=== PATIENT | male | born 1970 | race Caucasian/White ===

== ENCOUNTER 2022-04-06 02:30 | Emergency (ER) | payer OTHER, SELFPAY ==
[2022-04-06] MEDS ORDERED: Ondansetron PF 4 MG/2 ML Vial ONE (03:02)
[2022-04-06 03:11] LABS: #Eosinphils 0.1 thou/uL (0.0-0.7); #Lymphocytes 1.6 thou/uL (1.20-3.40); #Monocytes 0.6 thou/uL (0.11-0.59); #Neutrophils 8.3 thou/uL (1.40-6.50); %Basophils 0.4 % (0.0-1.0); %Monocytes 5.2 % (0.0-10.0); %Neutrophils 78.4 % (42.0-75.0); Hemoglobin 12.5 g/dL (14.0-18.0); Mean Corpuscular HGB CONC 30.9 g/dL (32.0-36.0); Mean Corpuscular Hemoglobin 26.8 pg (27.0-31.0); Mean Platelet Volume 6.9 fL (7.4-10.4); Platelet Count 484 thou/uL (130-400); RBC Distribution Width 17.8 % (11.5-14.5); Red Blood Cell (RBC) Count 4.65 mill/uL (4.70-6.10); White Blood Cell (WBC) Count 10.6 thou/uL (4.8-10.8)
[2022-04-06] MEDS ORDERED: Sodium Chloride 0.9% 100 ML ONE (03:21)
[2022-04-06] MEDS ORDERED: Piperacillin/Tazobactam 4.5 GM VIAL ONE (03:21)
[2022-04-06 03:27] LABS: ALT (SGPT) 20 U/L (8-55); AST (SGOT) 12 U/L (5-34); Albumin 3.9 g/dL (3.5-5.0); Alkaline Phosphatase 118 U/L (40-110); Anion Gap 17 mmol/L (10-20); BUN (Urea Nitrogen) 13 mg/dL (8.9-20.6); Bilirubin, Total 0.2 mg/dL (0.2-1.2); Calc. Creatinine Clearance 0 mL/min (70-130); Calcium 9.4 mg/dL (7.8-10.44); Carbon Dioxide 20 mmol/L (22-29); Chloride 103 mmol/L (98-107); Globulin 3.3 g/dL (2.4-3.5); Glucose 203 mg/dL (70-105); Lipase 8 U/L (8-78); Protein, Total 7.2 g/dL (6.0-8.3); Sodium 136 mmol/L (136-145)
[2022-04-06 04:27] LABS: SARS-CoV-2 NAA Rapid Test Not Detected (NotDetected)
[2022-04-06] MEDS ORDERED: Sodium Chloride 0.9% 1,000 ML ONE (05:42)
== END 2022-04-06 06:23 | disposition short-term general hospital (02) ==
LOC: NAV ERS 02:30
DX: J69.0 Pneumonitis due to inhalation of food and vomit (principal); R09.02 Hypoxemia; Z20.822 Contact with and (suspected) exposure to COVID-19; Z79.82 Long term (current) use of aspirin; Z79.02 Long term (current) use of antithrombotics/antiplatelets; Z79.899 Other long term (current) drug therapy
CPT/HCPCS: 71045; 80053; 83605; 83690; 85025; 87040; 94640; 96365; 96366; J2405; J2543; J3490; J7050; J7620; U0002